=== PATIENT | female | born 1960 | race Caucasian/White ===

== ENCOUNTER 2021-11-24 23:11 | Emergency (ER) | payer OTHER, MEDICAID ==
[~2021-11-24] VITALS: Ht 165.1 cm; Wt 81.6 kg
[2021-11-25 02:20] VITALS: BP 114/64
== END 2021-11-25 03:12 | disposition home or self-care (01) ==
LOC: EDUNIT# 23:11 → ER 23:11 → EDBD 23:11 → ER 11-25 03:10
DX: R04.0 Epistaxis (principal); I10 Essential (primary) hypertension
CPT/HCPCS: 30901

== ENCOUNTER 2021-11-27 12:28 | Emergency (ER) | payer OTHER, MEDICAID ==
[~2021-11-27] VITALS: Ht 154.9 cm; Wt 73.5 kg
[2021-11-27 13:23] VITALS: BP 115/63
== END 2021-11-27 13:49 | disposition home or self-care (01) ==
LOC: ER 12:28
DX: I10 Essential (primary) hypertension (principal); Z48.02 Encounter for removal of sutures